=== PATIENT | female | born 1975 | race Caucasian/White ===

== ENCOUNTER → 2019-02-22 | Day surgery (SDC) | payer BC ==
[~2019-02-22] MED LIST: ABILIFY5 MG PO; FENTANYL CITRATE/PF 100MCG/2 ML INJ ONE; LIDOCAINE HCL 2% LOCAL INJ 5 ML SDV VIAL INJ ONE; LOVAZA1 GM PO; MIDAZOLAM HCL 2 MG/2 ML VIAL ONE; PROPOFOL IV EMULSION 10 MG/ML 20 ML VIAL ONE; VITAMIN D400 UNIT PO; ZYRTEC10 M3 PO; trintellix PO
--- OUTSIDE RECORDS SUMMARY | 2019-02-22 05:11 | XMS REPORT | Clinical Summary ---
Author Author [facility] Organization [facility] Address Unknown Phone Unavailable Care Team Providers Care Pulp Refiner Operator Name Role Phone Provider, Unknown PCP Unavailable Allergies Not on File Medications Not on file Active Problems Not on file Social History Date Tobacco Use Types Packs/Day Years Used Never Assessed Sex Assigned at Date Recorded Not on file Industry Job Start Date Occupation Not on file Not on file Not on file Travel End Travel History Travel Start No recent travel history available. Last Filed Vital Signs Not on file Plan of Treatment Health Maintenance Due Date Last Done Comments INFLUENZA VACCINE 03/10/2019 Results Not on fileafter 02/21/2018 Insurance Type Payer Benefit Subscriber ID Effective Phone Address Plan / Dates Group PPO BCBS BCBS xxxxxxxxxxxx 2017-P CHOICE resent PPO/MAYA L EMPL PPO Advance Directives Patient has advance care planning documents on file. For more information, lian beavers contact: Erwin Garcia [address] [place] [address]
--- OUTSIDE RECORDS SUMMARY | 2019-02-22 05:11 | XMS REPORT | Continuity of Care Document ---
Author Author [employer] Organization [employer] Address Unknown Phone Unavailable Care Team Providers Care Water Softener Servicer Name Role Phone [employer] Information Exchange Unavailable Unavailable Problems Problem Status Onset Date Classification Date Reported Comments Source Depression Active Problem 02/22/2019 [facility] Vitamin D deficiency Active Problem 02/22/2019 [facility] ADHD Active Problem 02/22/2019 [facility] Motion sickness, subsequent encounter Active Diagnosis 11/28/2016 [facility] Hypothyroid Active Problem 11/19/2016 [facility] Mixed hyperlipidemia Active Problem 02/22/2019 [facility] Other obesity due to excess calories Active Problem 02/22/2019 [facility] Elevated LFTs Active Problem 02/22/2019 [facility] Acute pain of right shoulder Active Diagnosis 02/23/2017 [facility] Elevated BP without diagnosis of hypertension Active Diagnosis 02/23/2017 [facility] Body mass index of 30.0-30.9 in adult Active Problem 02/22/2019 [facility] Hyperglycemia Active Problem 02/22/2019 [facility] BMI 45.0-49.9, adult Active Problem 02/22/2019 [facility] Morbid obesity Active Problem 02/22/2019 [facility] Snoring Active Diagnosis 10/01/2018 [facility] Routine general medical examination at a health care facility Active Diagnosis 09/25/2018 [facility] Prediabetes Active Problem 09/11/2016 [facility] Hyperlipidemia Active Problem 06/20/2016 [facility] Morbid obesity due to excess calories Active Diagnosis 05/23/2016 [facility] Tendonitis of elbow, left Active Diagnosis 05/23/2016 [facility] Severe obesity Active Diagnosis 04/08/2016 [facility] Medications Medication Details Route Status Patient Instructions Ordering Provider Order Date Source Lovaza 2 capsules Orally Active 1 GM Orally Twice a day [facility] 09/09/2019 [facility] Vitamin D (Ergocalciferol) 1 capsule Orally Active 06002 UNIT Orally once per week [facility] Jesus 09/28/2018 [facility] Lovaza 2 capsules Orally Active 1 GM Orally Twice a day [facility] Jesus 05/14/2017 [facility] Naproxen 1 tablet Orally Active 500 MG Orally every 12 hrs prn [facility] Jesus 02/17/2017 [facility] Scopolamine 1 patch to skin as needed Transdermal Active 1 MG/3DAYS Transdermal Q72 hours [facility] Jesus 11/11/2016 [facility] Fenofibrate 1 tablet with a meal Orally Active 160 MG Orally Once a day [facility] 09/09/2016 [facility] Fenofibrate 1 tablet with a meal Orally Active 160 MG Orally Once a day [facility] 09/09/2016 [facility] Fenofibrate 1 tablet Orally No Longer Active 145 MG Orally Once a day [facility] 08/29/2016 [facility] Trilipix 1 capsule Orally Active 135 MG Orally Once a day [facility] 06/19/2016 [facility] Fenofibrate 1 tablet Orally No Longer Active 145 MG Orally Once a day [facility] 06/17/2016 [facility] Mirena not defined Intrauterine Active 20 MCG/24HR Intrauterine [facility] 04/10/2016 [facility] Mirena not defined Intrauterine Active 20 MCG/24HR Intrauterine [facility] 04/10/2016 [facility] Vitamin D (Ergocalciferol) 1 capsule Orally Active 82486 UNIT Orally once per week Aj 04/03/2016 [facility] Zyrtec Allergy 1 tablet Orally Active 10 MG Orally Once a day Olivares Jesus [facility] Vyvanse 1 capsule in the morning Orally Active 10 MG Orally Once a day [facility] Jesus [facility] Mirena not defined Intrauterine Active 20 MCG/24HR Intrauterine Aj [facility] Pristiq 1 tablet Orally Active 50 MG Orally Once a day [facility] Abilify 1 tablet Orally Active 10 MG Orally Once a day [facility] Trintellix 1 tablet Orally Active 10 MG Orally Once a day [facility] Abilify 1 tablet Orally Active 10 MG Orally Once a day [facility] Naproxen TAKE 1 TABLET BY MOUTH TWICE A DAY WITH MEALS Oral Active 500 mg Oral as needed (prn) [facility] Zyrtec Allergy 1 tablet Orally Active 10 MG Orally Once a day [facility] Pristiq 1 tablet Orally Active 50 MG Orally Once a day [facility] Vyvanse 1 capsule in the morning Orally Active 10 MG Orally Once a day [facility] Antara 1 capsule with a meal Orally No Longer Active 43 MG Orally Once a day [facility] Lexapro 0.5 tablet Orally Active 20 MG Orally Once a day [facility] Mucinex DM Maximum Strength 1 tablet as needed Orally Active 60-1200 MG Orally Twice a day [facility] Mucinex 1 tablet as needed Orally No Longer Active 600 MG Orally every 12 hrs [facility] Lovaza 2 capsules Orally Active 1 GM Orally Twice a day [facility] Allergies, Adverse Reactions, Alerts Substance Category Reaction Severity Reaction type Status Date Reported Comments Source sulfa Adverse Reaction hives Adverse Reaction Active 12/28/2018 [facility] Immunizations Immunization Date Given Site Status Last Updated Comments Source FLU 18 YRS & [place] [address] 04/03/2016 completed [facility] Results No Data Provided for This Section Pathology Reports No Data Provided for This Section Diagnostic Reports No Data Provided for This Section Consultation Notes No Data Provided for This Section Discharge Summaries No Data Provided for This Section History and Physicals No Data Provided for This Section Vital Signs Vital Sign Value Date Comments Source Weight 230 12/28/2018 [facility] Height 62 12/28/2018 [facility] Heart Rate 68 12/28/2018 [facility] Diastolic (mm Hg) 80 12/28/2018 [facility] Systolic (mm Hg) 126 12/28/2018 [facility] Weight 250 09/28/2018 [facility] Height 62 09/28/2018 [facility] Heart Rate 70 09/28/2018 [facility] Diastolic (mm Hg) 80 09/28/2018 [facility] Systolic (mm Hg) 122 09/28/2018 [facility] Weight 252 09/14/2018 [facility] Height 62 09/14/2018 [facility] Heart Rate 68 09/14/2018 [facility] Diastolic (mm Hg) 80 09/14/2018 [facility] Systolic (mm Hg) 124 09/14/2018 [facility] Weight 228 02/17/2017 [facility] Height 62 02/17/2017 [facility] Heart Rate 65 02/17/2017 [facility] Diastolic (mm Hg) 86 02/17/2017 [facility] Systolic (mm Hg) 142 02/17/2017 [facility] Weight 228 11/27/2016 [facility] Height 62 11/27/2016 [facility] Heart Rate 102 11/27/2016 [facility] Diastolic (mm Hg) 90 11/27/2016 [facility] Systolic (mm Hg) 140 11/27/2016 [facility] Weight 230 11/11/2016 [facility] Height 62 11/11/2016 [facility] Heart Rate 76 11/11/2016 [facility] Diastolic (mm Hg) 70 11/11/2016 [facility] Systolic (mm Hg) 120 11/11/2016 [facility] Weight 230 08/19/2016 [facility] Height 62 08/19/2016 [facility] Heart Rate 63 08/19/2016 [facility] Diastolic (mm Hg) 84 08/19/2016 [facility] Systolic (mm Hg) 118 08/19/2016 [facility] Weight 235 05/19/2016 [facility] Height 62 05/19/2016 [facility] Heart Rate 68 05/19/2016 [facility] Diastolic (mm Hg) 84 05/19/2016 [facility] Systolic (mm Hg) 122 05/19/2016 [facility] Weight 235 04/03/2016 [facility] Height 62 04/03/2016 [facility] Heart Rate 74 04/03/2016 [facility] Diastolic (mm Hg) 82 04/03/2016 [facility] Systolic (mm Hg) 129 04/03/2016 [facility] Encounters Location Location Details Encounter Type Encounter Number Reason For Visit Attending Provider ADM Date DC Date Status Source [facility] Physical/FBW [id number] 04/03/2016 04/03/2016 [facility] Physical/FBW [id number] 04/03/2016 04/03/2016 [facility] Physical/FBW [id number] 04/03/2016 04/03/2016 [facility] Physical/FBW [id number] 04/03/2016 04/03/2016 [facility] Physical/FBW [id number] 04/03/2016 04/03/2016 [facility] Physical/FBW [id number] 04/03/2016 04/03/2016 [facility] Physical/FBW [id number] 04/03/2016 04/03/2016 [facility] 1 month follow up [id number] 05/19/2016 05/19/2016 [facility] 1 month follow up [id number] 05/19/2016 05/19/2016 [facility] 1 month follow up [id number] 05/19/2016 05/19/2016 [facility] 1 month follow up [id number] 05/19/2016 05/19/2016 [facility] 1 month follow up [id number] 05/19/2016 05/19/2016 [facility] 1 month follow up [id number] 05/19/2016 05/19/2016 [facility] Unknown [id number] 06/16/2016 06/16/2016 [facility] Unknown [id number] 06/16/2016 06/16/2016 [facility] Unknown [id number] 06/16/2016 06/16/2016 [facility] Unknown [id number] 06/16/2016 06/16/2016 [facility] Unknown [id number] 06/16/2016 06/16/2016 [facility] Unknown [id number] 06/18/2016 06/18/2016 [facility] Unknown [id number] 06/18/2016 06/18/2016 [facility] Unknown [id number] 06/18/2016 06/18/2016 [facility] Unknown [id number] 06/18/2016 06/18/2016 [facility] 3 MONTH FOLLOW UP [id number] 08/19/2016 08/19/2016 [facility] 3 MONTH FOLLOW UP [id number] 08/19/2016 08/19/2016 [facility] 3 MONTH FOLLOW UP [id number] 08/19/2016 08/19/2016 [facility] Test results [id number] 08/29/2016 08/29/2016 [facility] Test results [id number] 08/29/2016 08/29/2016 [facility] Unknown [id number] 09/09/2016 09/09/2016 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 Status , Is zimbabwean your primary language? Yes Aug 19, 2016 Tobacco Use: . Are you a: never smoker Aug 19, 2016 Flu Vaccine: . never, Refuse Aug 19, 2016 Use of recreational / street drugs? . Answer: No Aug 19, 2016 Do you have pets? . Status: Yes, Type: cat(s) Aug 19, 2016 Where or with whom do you live ? . family Aug 19, 2016 Marital Status: . Js Aug 19, 2016 Caffeine intake? . Status: Yes, What type: Tea Aug 19, 2016 Do you exercise? . Answer: Yes, Type: walking Aug 19, 2016 Smoke Exposure: . Second Hand Smoke Exposure: No Aug 19, 2016 Do you drink alcohol? . Status: No Aug 19, 2016 08/19/[address] [place] [facility] Family History Value Date Source QualifierDescriptionCommentDate Reported Maternal Grandmother alive myocardial infarction, Gallbladder Disease Apr 03, 2016 Paternal Grandmother Comment not available Apr 03, 2016 Siblings Comment not available Apr 03, 2016 Maternal Grandfather Comment not available Apr 03, 2016 Children Comment not available Apr 03, 2016 Father heart disease, myocardial infarction, depression, type II diabetes, allergy Apr 03, 2016 Paternal Grandfather Comment not available Apr 03, 2016 Mother alive hypertension Apr 03, 2016 Other: Comment not available Apr 03, 2016 04/08/[address] [place] [facility] Advance Directives No Data Provided for This Section Functional Status No Data Provided for This Section
--- OUTSIDE RECORDS SUMMARY | 2019-02-22 05:12 | XMS REPORT ---
Author Author Cami Amaya [facility] [employer] Address Unknown Phone Unavailable Care Team Providers Care Ballaster Name Role Phone Cami Amaya CP Unavailable Allergies, Adverse Reactions, Alerts Substance Reaction Event Type sulfa hives Drug Allergy Problems Problem Type Condition Code Onset Dates Condition Status Problem Elevated LFTs R94.5 Active Problem ADHD (attention deficit hyperactivity disorder) F90.9 Active Problem Hyperglycemia R73.9 Active Assessment Vitamin D deficiency E55.9 Active Assessment Morbid obesity E66.01 Active Assessment Mixed hyperlipidemia E78.2 Active Assessment Depression F32.9 Active Problem BMI 45.0-49.9, adult Z68.42 Active Problem Other obesity due to excess calories E66.09 Active Problem Morbid obesity E66.01 Active Problem Vitamin D deficiency E55.9 Active Problem Depression F32.9 Active Problem Body mass index (BMI) of 30.0-30.9 in adult Z68.30 Active Problem Mixed hyperlipidemia E78.2 Active Medications Medication Code System Code Instructions Start Date End Date Status Dosage Mirena [facility] 34674415466 20 MCG/24HR Intrauterine Apr 10, 2016 Active not defined Naproxen [facility] 51831167995 500 mg Oral as needed (prn) Active TAKE 1 TABLET BY MOUTH TWICE A DAY WITH MEALS Fenofibrate ND 89193753451 160 MG Orally Once a day Sep 09, 2016 Active 1 tablet with a meal Vitamin D (Ergocalciferol) [facility] 26948772285 57440 UNIT Orally once per week Sep 28, 2018 Mar 27, 2019 Active 1 capsule Trintellix ND 69538524813 10 MG Orally Once a day Active 1 tablet Zyrtec Allergy ND 67427387691 10 MG Orally Once a day Active 1 tablet Abilify ND 68624336870 10 MG Orally Once a day Active 1 tablet Lovaza ND 75553848182 1 GM Orally Twice a day Sep 09, 2019 Active 2 capsules Vital Signs Date/Time: December 28, 2018 BMI 42.06 Index Weight 230 lbs Height 62 in Cardiac Monitoring Heart Rate 68 /min Blood Pressure Diastolic 80 mm Hg Blood Pressure Systolic 126 mm Hg Results No Known Results Summary Purpose [employer] Submission
--- OUTSIDE RECORDS SUMMARY | 2019-02-22 05:13 | XMS REPORT ---
Author Author Cami Amaya [facility] eClinicalWorks Address Unknown Phone Unavailable Care Team Providers Care Owner [employer] Name Role Phone Cami Amaya CP Unavailable Allergies, Adverse Reactions, Alerts Substance Reaction Event Type sulfa hives Drug Allergy Problems Problem Type Condition Code Onset Dates Condition Status Problem Elevated LFTs R94.5 Active Problem Hyperglycemia R73.9 Active Problem Other obesity due to excess calories E66.09 Active Problem Body mass index (BMI) of 30.0-30.9 in adult Z68.30 Active Problem BMI 45.0-49.9, adult Z68.42 Active Problem Depression F32.9 Active Problem ADHD (attention deficit hyperactivity disorder) F90.9 Active Problem Mixed hyperlipidemia E78.2 Active Problem Vitamin D deficiency E55.9 Active Assessment Vitamin D deficiency E55.9 Active Assessment Elevated LFTs R94.5 Active Assessment BMI 45.0-49.9, adult Z68.42 Active Assessment Depression F32.9 Active Assessment ADHD (attention deficit hyperactivity disorder) F90.9 Active Assessment Hyperglycemia R73.9 Active Assessment Screening for malignant neoplasm of breast Z12.39 Active Assessment Mixed hyperlipidemia E78.2 Active Assessment Routine general medical examination at a health care facility Z00.00 Active Medications Medication Code System Code Instructions Start Date End Date Status Dosage Lovaza [facility] 68346776152 1 GM Orally Twice a day Sep 09, 2019 Active 2 capsules Zyrtec Allergy [facility] 06019322231 10 MG Orally Once a day Active 1 tablet Abilify ND 39765371185 10 MG Orally Once a day Active 1 tablet Pristiq ND 69439805838 50 MG Orally Once a day Active 1 tablet Vyvanse ND 93691451468 10 MG Orally Once a day Active 1 capsule in the morning Mirena [facility] 59215377607 20 MCG/24HR Intrauterine Apr 10, 2016 Active not defined Trintellix ND 38227566783 10 MG Orally Once a day Active 1 tablet Naproxen [facility] 48739708134 500 mg Oral as needed (prn) Active TAKE 1 TABLET BY MOUTH TWICE A DAY WITH MEALS Fenofibrate [facility] 34024564446 160 MG Orally Once a day Sep 09, 2016 Active 1 tablet with a meal Vital Signs Date/Time: Sep 14, 2018 BMI 46.09 Index Weight 252 lbs Height 62 in Cardiac Monitoring Heart Rate 68 /min Blood Pressure Diastolic 80 mm Hg Blood Pressure Systolic 124 mm Hg Results Name Result Date Reference Range Unit Abnormality Flag TSH ----TSH 2.340 20180916 0.450-4.500 uIU/mL CBC With Differential/Platelet ----Basos 0 20180916 Not Estab. % ----MCV 85 99656508 79-97 fL ----Hematocrit 40.2 20180916 34.0-46.6 % ----Eos 2 20180916 Not Estab. % ----MCHC 32.8 20180916 31.5-35.7 g/dL ----Monocytes 5 20180916 Not Estab. % ----MCH 28.0 20180916 26.6-33.0 pg ----Lymphs 49 55383380 Not Estab. % ----Eos (Absolute) 0.1 [id number] 0.0-0.4 x10E3/uL ----WBC 7.4 [id number] 3.4-10.8 x10E3/uL ----Monocytes(Absolute) 0.3 [id number] 0.1-0.9 x10E3/uL ----Lymphs (Absolute) 3.7 [id number] 0.7-3.1 x10E3/uL H ----Hemoglobin 13.2 20180916 11.1-15.9 g/dL ----Neutrophils (Absolute) 3.3 [id number] 1.4-7.0 x10E3/uL ----RBC 4.71 [id number] 3.77-5.28 x10E6/uL ----Immature Grans (Abs) 0.0 44714776 0.0-0.1 x10E3/uL ----Immature Granulocytes 0 39144850 Not Estab. % ----Neutrophils 44 82482987 Not Estab. % ----Baso (Absolute) 0.0 76693876 0.0-0.2 x10E3/uL ----RDW 13.8 76195774 12.3-15.4 % ----Platelets 245 41512487 150-379 x10E3/uL Hemoglobin A1c ----Hemoglobin A1c 6.2 84205918 4.8-5.6 % H Urinalysis, Routine ----Glucose Negative 04097891 Negative ----Protein Negative [id number] Negative/Trace ----Occult Blood Negative 27392471 Negative ----Ketones Negative 54041693 Negative ----Urobilinogen,Semi-Qn 0.2 26977802 0.2-1.0 mg/dL ----Nitrite, Urine Negative [id number] Negative ----Bilirubin Negative 78980855 Negative ----Appearance Clear 20180916 Clear ----WBC Esterase Negative 20180916 Negative ----pH 5.5 81908910 5.0-7.5 ----Microscopic Examination Comment 20180916 ----Urine-Color Yellow 20180916 Yellow ----Specific [place] 1.019 22105604 1.005-1.030 Lipid Panel ----LDL Cholesterol Calc 122 31925485 0-99 mg/dL H ----VLDL Cholesterol [place] 51 91793495 5-40 mg/dL H ----HDL Cholesterol 37 84389116 >39 mg/dL L ----Triglycerides 257 07061523 0-149 mg/dL H ----Cholesterol, Total 210 99302666 100-199 mg/dL H Comp. Metabolic Panel (14) ----Creatinine 0.71 83208176 0.57-1.00 mg/dL ----BUN 10 07576642 6-24 mg/dL ----eGFR If Africn Am 121 [id number] >59 mL/min/1.73 ----eGFR If NonAfricn Am 105 [id number] >59 mL/min/1.73 ----Sodium 139 75037738 134-144 mmol/L ----BUN/Creatinine Ratio 14 20180916 9-23 ----Chloride 98 98962901 96-106 mmol/L ----Potassium 4.5 26301207 3.5-5.2 mmol/L ----Carbon Dioxide, Total 25 99994794 20-29 mmol/L ----Protein, Total 6.9 20180916 6.0-8.5 g/dL ----Calcium 9.8 20180916 8.7-10.2 mg/dL ----Globulin, Total 2.5 20180916 1.5-4.5 g/dL ----Albumin 4.4 20180916 3.5-5.5 g/dL ----Bilirubin, Total 0.4 20180916 0.0-1.2 mg/dL ----Glucose 111 20180916 65-99 mg/dL H ----A/G Ratio 1.8 20180916 1.2-2.2 ----ALT (SGPT) 39 20180916 0-32 IU/L H ----Alkaline Phosphatase 80 59045121 39-117 IU/L ----AST (SGOT) 32 20180916 0-40 IU/L Summary Purpose eClinicalWorks Submission
--- OUTSIDE RECORDS SUMMARY | 2019-02-22 05:13 | XMS REPORT ---
Author Author Cami Amaya Organization eClinicalWorks Address Unknown Phone Unavailable Care Team Providers Care [place] Patrol Lieutenant Name Role Phone Cami Amaya CP Unavailable Allergies No Known Allergies Problems Problem Type Condition Code Onset Dates Condition Status Problem Elevated LFTs R94.5 Active Problem ADHD (attention deficit hyperactivity disorder) F90.9 Active Problem Hyperglycemia R73.9 Active Assessment Elevated LFTs R94.5 Active Problem BMI 45.0-49.9, adult Z68.42 Active Problem Other obesity due to excess calories E66.09 Active Problem Morbid obesity E66.01 Active Problem Vitamin D deficiency E55.9 Active Problem Depression F32.9 Active Problem Body mass index (BMI) of 30.0-30.9 in adult Z68.30 Active Problem Mixed hyperlipidemia E78.2 Active Medications No Known Medications Results No Known Results Summary Purpose eClinicalWorks Submission
--- OUTSIDE RECORDS SUMMARY | 2019-02-22 05:13 | XMS REPORT ---
Author Author Cami Amaya [facility] eClinicalWorks Address Unknown Phone Unavailable Care Team Providers Care Finished Yarn Examiner Name Role Phone Cami Amaya CP Unavailable [...] Problem Vitamin D deficiency E55.9 Active Assessment Hyperglycemia R73.9 Active Assessment Elevated LFTs R94.5 Active Assessment Other obesity due to excess calories E66.09 Active Assessment Snoring R06.83 Active Assessment Vitamin D deficiency E55.9 Active Medications Medication Code System Code Instructions Start Date End Date Status Dosage Naproxen [facility] 51793924931 500 mg Oral as needed (prn) Active TAKE 1 TABLET BY MOUTH TWICE A DAY WITH MEALS Abilify [facility] 37361360594 10 MG Orally Once a day Active 1 tablet Vitamin D (Ergocalciferol) [facility] 46290655976 87326 UNIT Orally once per week Sep 28, 2018 Mar 27, 2019 Active 1 capsule Mirena [facility] 29214570203 20 MCG/24HR Intrauterine Apr 10, 2016 Active not defined Fenofibrate ND 14024512381 160 MG Orally Once a day Sep 09, 2016 Active 1 tablet with a meal Lovaza ND 31487214609 1 GM Orally Twice a day Sep 09, 2019 Active 2 capsules Trintellix ND 52014662634 10 MG Orally Once a day Active 1 tablet Zyrtec Allergy ND 82938350910 10 MG Orally Once a day Active 1 tablet Vital Signs Date/Time: Sep 28, 2018 BMI 45.72 Index Weight 250 lbs Height 62 in Cardiac Monitoring Heart Rate 70 /min Blood Pressure Diastolic 80 mm Hg Blood Pressure Systolic 122 mm Hg Results No Known Results Summary Purpose eClinicalWorks Submission
--- OUTSIDE RECORDS SUMMARY | 2019-02-22 05:13 | XMS REPORT ---
Author Author Cami Amaya Organization eClinicalWorks Address Unknown Phone Unavailable Care Team Providers Care Network Technology Instructor Name Role Phone Cami Amaya CP Unavailable [...] Instructions Start Date End Date Status Dosage Trintellix [facility] 03887663357 10 MG Orally Once a day Active 1 tablet Vitamin D (Ergocalciferol) [facility] 00584439671 57865 UNIT Orally once per week Sep 28, 2018 Mar 27, 2019 Active 1 capsule Mirena [facility] 51697945042 20 MCG/24HR Intrauterine Apr 10, 2016 Active not defined Abilify [facility] 90667621129 10 MG Orally Once a day Active 1 tablet Lovaza [facility] 20296258712 1 GM Orally Twice a day Sep 09, 2019 Active 2 capsules Fenofibrate [facility] 26627708158 160 MG Orally Once a day Sep 09, 2016 Active 1 tablet with a meal Naproxen [facility] 03232080756 500 mg Oral as needed (prn) Active TAKE 1 TABLET BY MOUTH TWICE A DAY WITH MEALS Zyrtec Allergy ND 14555005710 10 MG Orally Once a day Active 1 tablet Results No Known Results Summary Purpose eClinicalWorks Submission
--- OUTSIDE RECORDS SUMMARY | 2019-02-22 05:13 | XMS REPORT ---
Author Author Cami Amaya [facility] eClinicalWorks Address Unknown Phone Unavailable Care Team Providers Care Machine Repairer Maintenance Name Role Phone Cami Amaya CP Unavailable Allergies, Adverse Reactions, Alerts Substance Reaction Event Type sulfa rash Drug Allergy Problems Problem Type Condition Code Onset Dates Condition Status Assessment Other obesity due to excess calories E66.09 Active Problem Elevated LFTs R94.5 Active Assessment Acute pain of right shoulder M25.511 Active Assessment Elevated BP without diagnosis of hypertension R03.0 Active Assessment Body mass index (BMI) of 30.0-30.9 in adult Z68.30 Active Problem Body mass index (BMI) of 30.0-30.9 in adult Z68.30 Active Problem Mixed hyperlipidemia E78.2 Active Problem Other obesity due to excess calories E66.09 Active Problem ADHD (attention deficit hyperactivity disorder) F90.9 Active Problem Hyperglycemia R73.9 Active Problem Vitamin D deficiency E55.9 Active Problem Depression F32.9 Active Medications Medication Code System Code Instructions Start Date End Date Status Dosage Naproxen [facility] [address]-48 500 MG Orally every 12 hrs prn February 17, 2017 Mar 19, 2017 Active 1 tablet Pristiq [facility] [address]-75 50 MG Orally Once a day Active 1 tablet Lovaza [facility] [address]-90 1 GM Orally Twice a day May 14, 2017 Active 2 capsules Zyrtec Allergy [facility] [address]-89 10 MG Orally Once a day Active 1 tablet Vyvanse [facility] [address]-31 10 MG Orally Once a day Active 1 capsule in the morning Fenofibrate [facility] [address]-36 160 MG Orally Once a day Sep 09, 2016 Active 1 tablet with a meal Scopolamine [facility] [address]-82 1 MG/3DAYS Transdermal Q72 hours November 11, 2016 May 26, 2017 Active 1 patch to skin as needed Abilify [facility] [address]-48 10 MG Orally Once a day Active 1 tablet Mirena [facility] [address]-93 20 MCG/24HR Intrauterine Apr 10, 2016 Active not defined Vital Signs Date/Time: February 17, 2017 BMI 41.70 Index Weight 228 lbs Height 62 in Cardiac Monitoring Heart Rate 65 /min Blood Pressure Diastolic 86 mm Hg Blood Pressure Systolic 142 mm Hg Results No Known Results Summary Purpose eClinicalWorks Submission
--- OUTSIDE RECORDS SUMMARY | 2019-02-22 05:13 | XMS REPORT ---
Author Author Cami Amaya Organization eClinicalWorks Address Unknown Phone Unavailable Care Team Providers Care Wrap Checker Name Role Phone Cami Amaya CP Unavailable Allergies No Known Allergies Problems Problem Type Condition Code Onset Dates Condition Status Problem Elevated LFTs R94.5 Active Problem ADHD (attention deficit hyperactivity disorder) F90.9 Active Problem Hyperglycemia R73.9 Active Problem BMI 45.0-49.9, adult Z68.42 Active [...]
--- OUTSIDE RECORDS SUMMARY | 2019-02-22 05:14 | XMS REPORT ---
Author Author Cami Amaya [facility] eClinicalWorks Address Unknown Phone Unavailable Care Team Providers Care Colorectal Surgeon Name Role Phone Cami Amaya CP Unavailable Allergies, Adverse Reactions, Alerts Substance Reaction Event Type sulfa rash Drug Allergy Encounters Encounter Location Date Physical/FBW [facility] Apr 03, 2016 1 month follow up [facility] May 19, 2016 Problems Problem Type Condition ICD-9 Code Onset Dates Condition Status Assessment Morbid obesity due to excess calories E66.01 Active Assessment Tendonitis of elbow, left M77.8 Active Assessment BMI 40.0-44.9, adult Z68.41 Active Assessment Mixed hyperlipidemia E78.2 Active Assessment Vitamin D deficiency E55.9 Active Problem Prediabetes R73.09 Active Problem Hypothyroid E03.9 Active Problem Mixed hyperlipidemia E78.2 Active Problem Depression F32.9 Active Problem ADHD (attention deficit hyperactivity disorder) F90.9 Active Problem Hyperlipidemia E78.5 Active Problem Vitamin D deficiency E55.9 Active Medications Medication Code System Code Instructions Start Date End Date Status Dos[facility] [address]-28 20 MCG/24HR Intrauterine Active Unknown [facility] [address]-77 10 MG Orally Once a day Active 1 capsule in the morning [facility] [address]-13 1 GM Orally Twice a day May 14, 2017 Active 2 capsules Antara [facility] [address]-18 43 MG Orally Once a day Active 1 capsule with a meal Lexapro [facility] [address]-80 20 MG Orally Once a day Active 0.5 tablet Abilify [facility] [address]-60 10 MG Orally Once a day Active 1 tablet Mucinex DM Maximum Strength [facility] [address]-17 60-1200 MG Orally Twice a day Active 1 tablet as needed [facility] [address]-16 600 MG Orally every 12 hrs Active 1 tablet as needed Zyrtec [facility]ergy [facility] [address]-60 10 MG Orally Once a day Active 1 tablet Vitamin D (Ergocalciferol) [facility] [address]-59 42933 UNIT Orally once per week Apr 03, 2016 November 15, 2016 Active 1 capsule Social History Social History Element Qualifiers Date 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 Status , Is german your primary language? Yes May 19, 2016 Tobacco Use: . Are you a: never smoker May 19, 2016 Flu Vaccine: . never, Refuse May 19, 2016 Use of recreational / street drugs? . Answer: No May 19, 2016 Do you have pets? . Status: Yes, Type: cat(s) May 19, 2016 Where or with whom do you live ? . family May 19, 2016 Marital Status: . Js May 19, 2016 Caffeine intake? . Status: Yes, What type: Tea May 19, 2016 Do you exercise? . Answer: Yes, Type: walking May 19, 2016 Depression Screening: . positive May 19, 2016 Smoke Exposure: . Second Hand Smoke Exposure: No May 19, 2016 Do you drink alcohol? . Status: No May 19, 2016 Vital Signs Date/Time: May 19, 2016 Weight 235 lbs Height 62 in Cardiac Monitoring Heart Rate 68 /min Blood Pressure Diastolic 84 mm Hg Blood Pressure Systolic 122 mm Hg Summary Purpose eClinicalWorks Submission
--- OUTSIDE RECORDS SUMMARY | 2019-02-22 05:14 | XMS REPORT ---
Author Author Cami Amaya [facility] eClinicalWorks Address Unknown Phone Unavailable Care Team Providers Care Logging Shovel Operator Name Role Phone Cami Amaya CP Unavailable Allergies, Adverse Reactions, Alerts Substance Reaction Event Type sulfa rash Drug Allergy Encounters Encounter Location Date Physical/FBW [facility] Apr 03, 2016 Problems Problem Type Condition ICD-9 Code Onset Dates Condition Status Assessment Hyperlipidemia E78.5 Active Assessment Prediabetes R73.09 Active Assessment Hypothyroid E03.9 Active Problem Hypothyroid E03.9 Active Problem Hyperlipidemia E78.5 Active Problem Prediabetes R73.09 Active Problem ADHD (attention deficit hyperactivity disorder) F90.9 Active Assessment Routine general medical examination at a health care facility Z00.00 Active Problem Vitamin D deficiency E55.9 Active Problem Depression F32.9 Active Assessment BMI 40.0-44.9, adult Z68.41 Active Assessment ADHD (attention deficit hyperactivity disorder) F90.9 Active Assessment Tendonitis of elbow, left M77.8 Active Assessment Depression F32.9 Active Assessment Severe obesity (BMI >=40) E66.01 Active Assessment Vitamin D deficiency E55.9 Active Medications Medication Code System Code Instructions Start Date End Date Status Dosage [facility] [address]-79 43 MG Orally Once a day Active 1 capsule with a meal [facility] [address]-60 20 MG Orally Once a day Active 0.5 tablet Vitamin D ([facility]ocalciferol) [facility] [address]-14 87793 UNIT Orally once per week Apr 03, 2016 Jul 02, 2016 Active 1 capsule [facility]se [facility] [address]-70 10 MG Orally Once a day Active 1 capsule in the morning [facility] [address]-78 10 MG Orally Once a day Active 1 tablet Lovaza [facility] [address]-84 1 GM Orally Twice a day Active 2 capsules [facility] [address]-27 20 MCG/24HR Intrauterine Active Unknown Abilify [facility] [address]-22 10 MG Orally Once a day Active 1 tablet Mucinex [facility] [address]-15 600 MG Orally every 12 hrs Active 1 tablet as needed Mucinex DM Maximum Strength [facility] [address]-81 60-1200 MG Orally Twice a day Active 1 tablet as needed Social History Social History Element Qualifiers Date Reported 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 Status , Is pashto your primary language? Yes Apr 03, 2016 Tobacco Use: . Are you a: never smoker Apr 03, 2016 Flu Vaccine: . never, Refuse Apr 03, 2016 Use of recreational / street drugs? . Answer: No Apr 03, 2016 Do you have pets? . Status: Yes, Type: cat(s) Apr 03, 2016 Where or with whom do you live ? . family Apr 03, 2016 Marital Status: . Js Apr 03, 2016 Caffeine intake? . Status: Yes, What type: Tea Apr 03, 2016 Do you exercise? . Answer: Yes, Type: walking Apr 03, 2016 Depression Screening: . positive Apr 03, 2016 Smoke Exposure: . Second Hand Smoke Exposure: No Apr 03, 2016 Do you drink alcohol? . Status: No Apr 03, 2016 Family history Qualifier Description Comment Date Reported Maternal Grandmother alive myocardial infarction, Gallbladder [...] Other: Comment not available Apr 03, 2016 Vital Signs Date/Time: Apr 03, 2016 Weight 235 lbs Height 62 in Cardiac Monitoring Heart Rate 74 /min Blood Pressure Diastolic 82 mm Hg Blood Pressure Systolic 129 mm Hg Immunizations Vaccine Administration Date FLU 18 YRS & UP [address] Apr 03, 2016 Summary Purpose eClinicalWorks Submission
--- OUTSIDE RECORDS SUMMARY | 2019-02-22 05:15 | XMS REPORT ---
Author Author Cami Amaya [facility] eClinicalWorks Address Unknown Phone Unavailable Care Team Providers Care Creative Writing English Professor Name Role Phone Olivares Cami Jesus CP Unavailable Encounters Encounter Location Date Physical/FBW [facility] Apr 03, 2016 1 month follow up [facility] May 19, 2016 Unknown [facility] Jun 16, 2016 Problems Problem Type Condition ICD-9 Code Onset Dates Condition Status Assessment Mixed hyperlipidemia E78.2 Active Problem Prediabetes R73.09 Active Problem Hypothyroid E03.9 Active Problem Mixed hyperlipidemia E78.2 Active Problem Depression F32.9 Active Problem ADHD (attention deficit hyperactivity disorder) F90.9 Active Problem Hyperlipidemia E78.5 Active Problem Vitamin D deficiency E55.9 Active Medications Medication Code System Code Instructions Start Date End Date Status Dosage Fenofibrate [facility] [address]-68 145 MG Orally Once a day Jun 17, 2016 Active 1 tablet Antara [facility] [address]-06 43 MG Orally Once a day Inactive 1 capsule with a meal Social History Social History Element Qualifiers Date 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 Status , Is danish your primary language? Yes May 19, 2016 [...] alcohol? . Status: No May 19, 2016 Summary Purpose eClinicalWorks Submission
--- OUTSIDE RECORDS SUMMARY | 2019-02-22 05:15 | XMS REPORT ---
Author Author Cami Amaya [facility] eClinicalWorks Address Unknown Phone Unavailable Care Team Providers Care Customer Service Assistant Name Role Phone Cami Amaya CP Unavailable Allergies, Adverse Reactions, Alerts Substance Reaction Event Type sulfa rash Drug Allergy Encounters Encounter Location Date Unknown [facility] Jun 18, 2016 3 MONTH FOLLOW UP [facility] Aug 19, 2016 Physical/FBW [facility] Apr 03, 2016 1 month follow up [facility] May 19, 2016 Unknown [facility] Jun 16, 2016 Problems Problem Type Condition ICD-9 Code Onset Dates Condition Status Assessment Hypothyroid E03.9 Active Assessment Mixed hyperlipidemia E78.2 Active Assessment Vitamin D deficiency E55.9 Active Assessment Depression F32.9 Active Problem Prediabetes R73.09 Active Problem Hypothyroid E03.9 Active Problem Mixed hyperlipidemia E78.2 Active Problem ADHD (attention deficit hyperactivity disorder) F90.9 Active Assessment Prediabetes R73.09 Active Problem Vitamin D deficiency E55.9 Active Problem Depression F32.9 Active Medications Medication Code System Code Instructions Start Date End Date Status Dosage Mucinex [facility] [address]-48 600 MG Orally every 12 hrs Inactive 1 tablet as needed Pristiq [facility] [address]-51 50 MG Orally Once a day Active 1 tablet Lexapro [facility] [address]-53 20 MG Orally Once a day Active 0.5 tablet Vyvanse [facility] [address]-20 10 MG Orally Once a day Active 1 capsule in the morning Lovaza [facility] [address]-57 1 GM Orally Twice a day May 14, 2017 Active 2 capsules Vitamin D (Ergocalciferol) [facility] [address]-25 63232 UNIT Orally once per week Apr 03, 2016 November 15, 2016 Active 1 capsule Zyrtec Allergy [facility] [address]-07 10 MG Orally Once a day Active 1 tablet Mirena [facility] [address]-18 20 MCG/24HR Intrauterine Active [facility] [address]-66 135 MG Orally Once a day Jun 19, 2016 Active 1 capsule Abilify [facility] [address]-30 10 MG Orally Once a day Active 1 tablet Social History Social History Element Qualifiers Date Reported 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 Status , Is tajik your primary language? Yes Aug 19, 2016 [...] alcohol? . Status: No Aug 19, 2016 Vital Signs Date/Time: Aug 19, 2016 Weight 230 lbs Height 62 in Cardiac Monitoring Heart Rate 63 /min Blood Pressure Diastolic 84 mm Hg Blood Pressure Systolic 118 mm Hg Results Hemoglobin A1c Summary Purpose eClinicalWorks Submission
--- OUTSIDE RECORDS SUMMARY | 2019-02-22 05:15 | XMS REPORT ---
Author Author Cami Amaya [facility] [employer] Address Unknown Phone Unavailable Care Team Providers Care Chief Estimator Name Role Phone Cami Amaya CP Unavailable Encounters Encounter Location Date Unknown [facility] Jun 18, 2016 Physical/FBW [facility] Apr 03, 2016 1 month [address] up [facility] May 19, [address] [facility] Jun 16, 2016 Problems Problem Type Condition ICD-9 Code Onset Dates Condition Status Problem Prediabetes R73.09 Active Problem Hypothyroid E03.9 Active Problem Mixed hyperlipidemia E78.2 Active Problem Depression F32.9 Active Problem ADHD (attention deficit hyperactivity disorder) F90.9 Active Problem Hyperlipidemia E78.5 Active Problem Vitamin D deficiency E55.9 Active Medications Medication Code System Code Instructions Start Date End Date Status Dosage Trilipix MEDISPAN [address]-95 135 MG Orally Once a day Jun 19, 2016 Active 1 capsule Fenofibrate [facility] [address]-33 145 MG Orally Once a day Jun 17, 2016 Inactive 1 tablet Social History Social History Element Qualifiers Date 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 Status , Is azeri your primary language? Yes May 19, 2016 [...]
--- OUTSIDE RECORDS SUMMARY | 2019-02-22 05:16 | XMS REPORT ---
Author Author Lamar Rocha Organization [employer] Address Unknown Phone Unavailable Care Team Providers Care Pipe Tester Name Role Phone Lamar Rocha CP Unavailable Allergies, Adverse Reactions, Alerts Substance Reaction Event Type sulfa rash Drug Allergy Problems Problem Type Condition Code Onset Dates Condition Status Assessment Mixed hyperlipidemia E78.2 Active Assessment Hyperglycemia R73.9 Active Assessment Vitamin D deficiency E55.9 Active Assessment Motion sickness, subsequent encounter T75.3XXD Active Assessment Elevated BP without diagnosis of hypertension R03.0 Active Problem Vitamin D deficiency E55.9 Active Problem Depression F32.9 Active Problem Mixed hyperlipidemia E78.2 Active Problem Elevated LFTs R94.5 Active Assessment Elevated LFTs R94.5 Active Problem ADHD (attention deficit hyperactivity disorder) F90.9 Active Problem Hyperglycemia R73.9 Active Medications Medication Code System Code Instructions Start Date End Date Status Dosage Abilify [facility] [address]-99 10 MG Orally Once a day Active 1 tablet Fenofibrate [facility] [address]-45 160 MG Orally Once a day Sep 09, 2016 Active 1 tablet with a meal Vyvanse [facility] [address]-22 10 MG Orally Once a day Active 1 capsule in the morning Zyrtec Allergy [facility] [address]-23 10 MG Orally Once a day Active 1 tablet Lovaza [facility] [address]-39 1 GM Orally Twice a day May 14, 2017 Active 2 capsules Mirena [facility] [address]-40 20 MCG/24HR Intrauterine Active not defined Pristiq [facility] [address]-39 50 MG Orally Once a day Active 1 tablet Scopolamine [facility] [address]-90 1 MG/3DAYS Transdermal Q72 hours November 11, 2016 May 26, 2017 Active 1 patch to skin as needed Vital Signs Date/Time: November 27, 2016 BMI 41.70 Index Weight 228 lbs Height 62 in Cardiac Monitoring Heart Rate 102 /min Blood Pressure Diastolic 90 mm Hg Blood Pressure Systolic 140 mm Hg Results No Known Results Summary Purpose eClinicalWorks Submission
--- OUTSIDE RECORDS SUMMARY | 2019-02-22 05:16 | XMS REPORT ---
Author Author Lamar Rocha [facility] e[employer] Address Unknown Phone Unavailable Care Team Providers Care Leave Specialist Name Role Phone Lamar Rocha CP Unavailable Allergies, Adverse Reactions, Alerts Substance Reaction Event Type sulfa rash Drug Allergy Problems Problem Type Condition Code Onset Dates Condition Status Assessment Depression F32.9 Active Assessment Vitamin D deficiency E55.9 Active Assessment ADHD (attention deficit hyperactivity disorder) F90.9 Active Assessment Motion sickness, subsequent encounter T75.3XXD Active Problem Hypothyroid E03.9 Active Problem Vitamin D deficiency E55.9 Active Problem Mixed hyperlipidemia E78.2 Active Assessment Mixed hyperlipidemia E78.2 Active Assessment Hypothyroid E03.9 Active Problem Depression F32.9 Active Problem ADHD (attention deficit hyperactivity disorder) F90.9 Active Medications Medication Code System Code Instructions Start Date End Date Status Dosage Zyrtec Allergy [facility] [address]-25 10 MG Orally Once a day Active 1 tablet Fenofibrate [facility] [address]-79 160 MG Orally Once a day Sep 09, 2016 Active 1 tablet with a meal Scopolamine [facility] [address]-57 1 MG/3DAYS Transdermal Q72 hours November 11, 2016 January 10, 2017 Active 1 patch to skin as needed Vyvanse [facility] [address]-42 10 MG Orally Once a day Active 1 capsule in the morning Mirena [facility] [address]-16 20 MCG/24HR Intrauterine Active not defined Vitamin D (Ergocalciferol) [facility] [address]-04 [address] UNIT Orally once per week Apr 03, 2016 November 15, 2016 Active 1 capsule Pristiq [facility] [address]-45 50 MG Orally Once a day Active 1 tablet Lovaza [facility] [address]-09 1 GM Orally Twice a day May 14, 2017 Active 2 capsules Abilify [facility] [address]-42 10 MG Orally Once a day Active 1 tablet Vital Signs Date/Time: November 11, 2016 BMI 42.06 Index Weight 230 lbs Height 62 in Cardiac Monitoring Heart Rate 76 /min Blood Pressure Diastolic 70 mm Hg Blood Pressure Systolic 120 mm Hg Results No Known Results Summary Purpose [employer]ClinicalWorks Submission
--- OUTSIDE RECORDS SUMMARY | 2019-02-22 05:16 | XMS REPORT ---
Author Author Cami Amaya [facility] e[employer] Address Unknown Phone Unavailable Care Team Providers Care Pelletizer Name Role Phone Cami Amaya CP Unavailable Encounters Encounter Location Date Unknown [facility] Jun 18, 2016 3 MONTH FOLLOW UP [facility] Aug 19, 2016 Test results [facility] Aug 29, 2016 Unknown [facility] Sep 09, 2016 Physical/FBW [facility] Apr 03, 2016 1 month follow up [facility] May 19, 2016 Unknown [facility] Jun 16, 2016 Problems Problem Type Condition ICD-9 Code Onset Dates Condition Status Problem Prediabetes R73.09 Active Problem Hypothyroid E03.9 Active Problem Mixed hyperlipidemia E78.2 Active Problem ADHD (attention deficit hyperactivity disorder) F90.9 Active Problem Vitamin D deficiency E55.9 Active Problem Depression F32.9 Active Medications Medication Code System Code Instructions Start Date End Date Status Dosage Fenofibrate MEDISPAN [address]-87 160 MG Orally Once a day Sep 09, 2016 Active 1 tablet with a meal Fenofibrate [facility] [address]-63 145 MG Orally Once a day Aug 29, 2016 Inactive 1 tablet Social History Social History Element Qualifiers Date Reported 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 Status , Is swiss your primary language? Yes Aug 19, 2016 [...] alcohol? . Status: No Aug 19, 2016 Summary Purpose eClinicalWorks Submission
--- OUTSIDE RECORDS SUMMARY | 2019-02-22 05:16 | XMS REPORT ---
Author Author Cami Amaya [facility] eClinicalWorks Address Unknown Phone Unavailable Care Team Providers Care Scientist/Engineer Name Role Phone Cami Amaya CP Unavailable Encounters Encounter Location Date Unknown [facility] Jun 18, 2016 3 MONTH FOLLOW UP [facility] Aug 19, 2016 Test results [facility] Aug 29, 2016 Physical/FBW [facility] Apr 03, 2016 1 month follow up [facility] May 19, 2016 Unknown [facility] Jun 16, 2016 Problems Problem Type Condition ICD-9 Code Onset Dates Condition Status Problem Prediabetes R73.09 Active Problem Hypothyroid E03.9 Active Problem Mixed hyperlipidemia E78.2 Active Problem ADHD (attention deficit hyperactivity disorder) F90.9 Active Problem Vitamin D deficiency E55.9 Active Problem Depression F32.9 Active Medications Medication Code System Code Instructions Start Date End Date Status Dosage [facility] [address]-97 145 MG Orally Once a day Aug 29, 2016 Active 1 tablet Social History Social History Element Qualifiers Date Reported 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 Status , Is croatian your primary language? Yes Aug 19, 2016 [...]
[2019-02-22 08:05] VITALS: BP 135/90
--- NOTE | 2019-02-22 10:49 | Operative Report ---
DATE OF PROCEDURE: SURGEON: Jackson Haines MD PROCEDURE: Colonoscopy. INDICATIONS: The patient with a family history of colon cancer, here for colon cancer screening. DESCRIPTION OF PROCEDURE: After informed and written consent, premedications with monitored anesthesia care, standard adult video colonoscope was introduced into the rectum and all the way into the cecum and into the terminal ileum. The terminal ileum, cecum, appendiceal orifice, and ileocecal valve all appeared to be normal. Ascending colon, transverse, descending, sigmoid, and rectum appeared to be unremarkable. Retroflexion of the rectum was also normal. IMPRESSION: Normal colonoscopy. RECOMMENDATIONS: Repeat colonoscopy in 5 years. Followup with our office as needed. Jackson Haines MD SR/MODL /[id number] cc: Cami Adam DO
== END | disposition home or self-care (01) ==
LOC: OR 05:00
PROVIDERS: ATTEND Internal Medicine Gastroenterology
DX: Z12.11 Encounter for screening for malignant neoplasm of colon (principal); Z71.3 Dietary counseling and surveillance; R74.0 Nonspecific elevation of levels of transaminase and lactic acid dehydrogenase [LDH]; E66.01 Morbid (severe) obesity due to excess calories; Z88.2 Allergy status to sulfonamides; Z68.41 Body mass index [BMI] 40.0-44.9, adult; Z87.891 Personal history of nicotine dependence; Z80.0 Family history of malignant neoplasm of digestive organs
CPT/HCPCS: 45378; 81025; J2001; J2250; J2704; J3010